=== PATIENT | female | born 1965 | race Asian ===

== ENCOUNTER → 2016-02-14 | Outpatient (CLI) | payer BC ==
--- NOTE | 2016-02-14 15:10 | MAMMOGRAPHY REPORT ---
BILATERAL DIGITAL DIAGNOSTIC MAMMOGRAM TOMOSYNTHESIS WITH CAD AND TARGETED RIGHT ULTRASOUND: 7 CLINICAL HISTORY: 50-year-old female for represents for follow-up in both breasts for clusters of mi crocalcifications and right breast asymmetry. She is 6 months status post benign right breast stere otactic biopsy of one of the clusters of microcalcifications. TECHNIQUE: Bilateral CC and MLO 2-D digital and tomosynthesis images; spot magnification CC and ML v iews of each breast were obtained. COMPARISON: Comparison is made to exams dated: 08/12/2015 mammogram, 08/09/2015 mammogram, 08/17/2015 st ereotactic biopsy, and 08/17/2015 mammogram - [facility]. BREAST COMPOSITION: The tissue of both breasts is heterogeneously dense, which may obscure small ma sses. FINDINGS: There is a dumbbell shaped metallic biopsy marker in the upper outer middle one third of the right breast, from previous benign stereotactic biopsy. On the spot magnification views of the right breast, a few remaining faint punctate grouped microcalcifications are seen superior and later al to the biopsy marker clip. On the standard right CC view, there is an 8 mm asymmetry in the ante rior breast, along the posterior nipple line on the CC view that appears very similar to an asymmetr y seen on the 08/09/2015 mammogram. Questionable persistent mass on the corresponding tomosynthesis images. Further evaluation with ultrasound was performed. No other obvious mass, architectural di stortion or new cluster of microcalcifications is identified within the right breast. The parenchymal pattern of the left breast is stable. There are grouped microcalcifications in the upper outer posterior left breast, near the fatglandular interface, that are unchanged comparing to spot magnification views performed 08/12/2015. Although these could also represent fibrocystic cj nges, longer stability is needed. No new suspicious mass, architectural distortion or cluster of ne w, suspicious microcalcifications is seen within the left breast. Real-time high-resolution sonographic evaluation was performed in the right breast 11:00 through 1:0 0, retroareolar, and 5:00 or 7:00 axes. No suspicious solid or cystic mass is identified. IMPRESSION: ACR-BI-RADS CATEGORY 3: PROBABLY BENIGN, TARGETED ULTRASOUND ACR-BI-RADS CATEGORY 3: ID OBABLY BENIGN 1. There are stable post biopsy changes in the upper outer quadrant of the right breast, and stable grouped punctate microcalcifications remaining within the right upper outer quadrant. An asymmetry along the posterior nipple line in the anterior right breast on the CC view has no suspicious sonog raphic correlate and it appears similar to the sixth 10/01/2015 mammogram. Although this most li nina represents normal overlapping fibrolinear tissue, follow-up right mammography and possible repe at ultrasound is recommended to ensure stability in 6 months. 2. There are stable grouped microcalcifications in the upper outer quadrant of the left breast, poly r the fatglandular interface. A another short interval follow-up exam including spot magnification views is recommended to ensure stability in 6 months. These results and recommendations were discussed with the patient at the time of the exam. She tent atively scheduled a follow-up appointment prior to leaving our department. Approximately 10% of breast cancers are not detected with mammography. A negative mammographic repor t should not delay biopsy if a clinically suggestive mass is present. Liza Olson M.D. ay/:02/14/2016 14:47:15 Regulatory Compliance Engineer: Marcella JAVED(Augusto)(Isiah), [facility] letter sent: Follow Up Recommended 3 BI-RADS Code: ACR-BI-RADS Category 3: Probably Benign Ultrasound BI-RADS: ACR-BI-RADS Category 3: P robably Benign
== END | disposition home or self-care (01) ==
LOC: C.MAMM 14:09
PROVIDERS: ATTEND Family Medicine
DX: R92.0 Mammographic microcalcification found on diagnostic imaging of breast (principal); N64.9 Disorder of breast, unspecified

== ENCOUNTER 2016-05-27 13:41 | Emergency (ER) | payer BC, OTHER ==
[~2016-05-27] VITALS: Ht 167.6 cm; Wt 82.0 kg
[2016-05-27 14:13] VITALS: O2SAT 99
[2016-05-27 14:17] VITALS: Ht 167.6 cm; Wt 82.0 kg
[2016-05-27 14:22] LABS: BASO % 0.2 %; BASO ABS # 0.01 K/uL (0-0.2); COMPLETE YES; EOS % 1.3 %; HEMATOCRIT 41.1 % (37-47); IG% 0.2 %; LYMPH % 27.1 %; LYMPH ABS # 1.28 K/uL (1.2-3.4); MEAN CELL VOLUME 88.6 fL (80-100); MEAN CORPUSCULAR HEMOGLOBIN 31.7 pg (25-34); MEAN CORPUSCULAR HGB CONC 35.8 g/dl (32-36); MEAN PLATELET VOLUME 10.3 fL (7.4-10.4); MONO % 6.1 %; NEUT % 65.1 %; PLATELET COUNT 206 K/uL (130-400); RED BLOOD COUNT 4.64 M/uL (4.2-5.4); WHITE BLOOD COUNT 4.72 K/uL (4.8-10.8)
--- NOTE | 2016-05-27 14:33 | DIAGNOSTIC IMAGING REPORT ---
SINGLE VIEW CHEST CLINICAL HISTORY: Dyspnea. FINDINGS: An AP, portable, upright chest radiograph is obtained. No prior studies are available for comparison at the time of dictation. The examination is degraded by portable technique, large body habitus, and patient rotation. The heart is top normal for projection. The mediastinal contour is within normal limits. There is minimal bibasilar atelectasis. The lungs and pleural spaces are otherwise clear. No pneumothorax is seen. The skeletal structures appear osteopenic. The bony thorax is grossly intact. IMPRESSION: No active disease in the chest. Electronically signed by: Porfirio Calderón M.D. 05/27/2016 2:31 PM Dictated Date/Time: 05/27/2016 2:30 PM
[2016-05-27 14:34] LABS: BUN/CREATININE RATIO 14.8 (10-20); CALCIUM 8.9 mg/dl (8.5-10.1); CREATININE 0.71 mg/dl (0.60-1.20); POTASSIUM 3.5 mmol/L (3.5-5.1)
[2016-05-27 14:39] LABS: ALB/GLOB RATIO 1.1 (0.9-2); CKMB/CK RATIO 1.7 (0-3.0)
[2016-05-27 16:01] LABS: URINE APPEARANCE CLEAR (CLEAR); URINE BILIRUBIN NEG (NEG); URINE COLOR YELLOW; URINE EPITHELIAL CELL AUTO >30 /lpf (0-5); URINE NITRITE NEG (NEG); URINE PH 5.5 (4.5-7.5); URINE SPECIFIC GRAVITY 1.005 (1.000-1.030); UROBILINOGEN NEG (NEG)
[2016-05-27 16:02] LABS: MANUAL MICROSCOPIC REQUIRED? NO; REVIEW REQ? YES
[2016-05-27 16:58] VITALS: BP 200/87; PULSE 87; TEMP 36.8; O2SAT 98
--- NOTE | 2016-05-27 17:42 | EMERGENCY ROOM VISIT NOTE ---
History Report prepared by Andrew: Ploi Pizano Under the Supervision of: Dr. Onesimo Guo M.D. First contact with patient: 14:01 Chief Complaint: SHORTNESS OF BREATH Stated Complaint: HYPERTENSION, FLUID IN LUNG, ENLARGED HEART History of Present Illness The patient is a 51 year old female who presents to the Emergency Room with complaints of intermittent shortness of breath for the past several days. The shortness of breath is worse with exertion. The patient was seen by [facility] earlier today because she has been hypertensive for the past several days. The patient had a Chest X-ray that showed fluid in her lungs. She is not treated for hypertension, but she does have a family history. The patient also has some neck pain/pressure, which is not exertional. The patient follows up with Dr. Young, [facility]. Patient denies LOC, headache, fevers, chills , diaphoresis, visual changes, chest pain, radiation to the jaw, nausea, vomiting, abdominal pain, back pain, melena, hematochezia, urinary symptoms, numbness, weakness, lymphadenopathy, rash, or other complaints. The patient's daughter acted as a airplane rental clerk at bedside. The patient's [place] language is Icelandic. Source of History: patient, family (daughter) Onset: several days ago Position: other (respiratory) Quality: other (short of breath) Timing: intermittent Modifying Factors (Worsening): exertion Associated Symptoms: + neck pain Review of Systems See HPI for pertinent positives and negatives. A total of ten systems were reviewed and were otherwise negative. Past Medical & Surgical Surgical Problems: (1) S/P section Family History Hypertension Social History Smoking Status: Never Smoker Housing Status: lives with family Current/Historical Medications No Active Prescriptions or Reported Meds Allergies Coded Allergies: No Known Allergies (Unverified , 05/27/16) Physical Exam Vital Signs Date Time Temp Pulse Resp B/P Pulse Ox O2 Delivery O2 Flow Rate FiO2 05/27/16 16:58 36.8 87 18 200/87 98 05/27/16 16:54 87 18 200/87 Room Air 05/27/16 15:21 74 16 145/98 98 Room Air 05/27/16 14:31 69 05/27/16 14:13 99 Room Air 05/27/16 13:44 36.8 76 20 194/99 98 Room Air Medical Decision & Procedures ER Provider Diagnostic Interpretation: X ray results as stated below per my interpretation and radiologist interpretation. SINGLE VIEW CHEST CLINICAL HISTORY: Dyspnea. FINDINGS: An AP, portable, upright chest radiograph is obtained. No prior studies are available for comparison at the time of dictation. The examination is degraded by portable technique, large body habitus, and patient rotation. The heart is top normal for projection. The mediastinal contour is within normal limits. There is minimal bibasilar atelectasis. The lungs and pleural spaces are otherwise clear. No pneumothorax is seen. The skeletal structures appear osteopenic. The bony thorax is grossly intact. IMPRESSION: No active disease in the chest. Electronically signed by: Porfirio Calderón M.D. 05/27/2016 2:31 PM Dictated Date/Time: 05/27/2016 2:30 PM Laboratory Results 05/27/16 14:00 Red Blood Count 4.64, Mean Corpuscular Volume 88.6, Mean Corpuscular Hemoglobin 31.7, Mean Corpuscular Hemoglobin Concent 35.8, Mean Platelet Volume 10.3, Neutrophils (%) (Auto) 65.1, Lymphocytes (%) (Auto) 27.1, Monocytes (%) (Auto) 6.1, Eosinophils (%) (Auto) 1.3, Basophils (%) (Auto) 0.2, Neutrophils # (Auto) 3.07, Lymphocytes # (Auto) 1.28, Monocytes # (Auto) 0.29, Eosinophils # (Auto) 0.06, Basophils # (Auto) 0.01 05/27/16 14:00 Test 05/27/16 14:00 05/27/16 14:16 05/27/16 15:10 White Blood Count 4.72 K/uL (4.8-10.8) Red Blood Count 4.64 M/uL (4.2-5.4) Hemoglobin 14.7 g/dL (12.0-16.0) Hematocrit 41.1 % (37-47) Mean Corpuscular Volume 88.6 fL (80-100) Mean Corpuscular Hemoglobin 31.7 pg (25-34) Mean Corpuscular Hemoglobin Concent 35.8 g/dl (32-36) Platelet Count 206 K/uL (130-400) Mean Platelet Volume 10.3 fL (7.4-10.4) Neutrophils (%) (Auto) 65.1 % Lymphocytes (%) (Auto) 27.1 % Monocytes (%) (Auto) 6.1 % Eosinophils (%) (Auto) 1.3 % Basophils (%) (Auto) 0.2 % Neutrophils # (Auto) 3.07 K/uL (1.4-6.5) Lymphocytes # (Auto) 1.28 K/uL (1.2-3.4) Monocytes # (Auto) 0.29 K/uL (0.11-0.59) Eosinophils # (Auto) 0.06 K/uL (0-0.5) Basophils # (Auto) 0.01 K/uL (0-0.2) RDW Standard Deviation 39.9 fL (36.4-46.3) RDW Coefficient of Variation 12.4 % (11.5-14.5) Immature Granulocyte % (Auto) 0.2 % Immature Granulocyte # (Auto) 0.01 K/uL (0.00-0.02) Anion Gap 10.0 mmol/L (3-11) Est Creatinine Clear Calc Drug Dose 98.9 ml/min Estimated GFR () 112.7 Estimated GFR (Non- 97.2 BUN/Creatinine Ratio 14.8 (10-20) Calcium Level 8.9 mg/dl (8.5-10.1) Total Bilirubin 1.8 mg/dl (0.2-1) Aspartate Amino Transf (AST/SGOT) 91 U/L (15-37) Alanine Aminotransferase (ALT/SGPT) 175 U/L (12-78) Alkaline Phosphatase 84 U/L (45-117) Total Creatine Kinase 78 U/L (26-192) Creatine Kinase MB 1.3 ng/ml (0.5-3.6) Creatine Kinase MB Ratio 1.7 (0-3.0) Total Protein 8.5 gm/dl (6.4-8.2) Albumin 4.5 gm/dl (3.4-5.0) Globulin 4.0 gm/dl (2.5-4.0) Albumin/Globulin Ratio 1.1 (0.9-2) Bedside Troponin I 0.000 ng/ml (0-0.045) VD-Jiq-U-Type Natriuretic Peptide 40 pg/ml (0-900) Urine Color YELLOW Urine Appearance CLEAR (CLEAR) Urine pH 5.5 (4.5-7.5) Urine Specific [place] 1.005 (1.000-1.030) Urine Protein NEG (NEG) Urine Glucose (UA) NEG (NEG) Urine Ketones NEG (NEG) Urine Occult Blood NEG (NEG) Urine Nitrite NEG (NEG) Urine Bilirubin NEG (NEG) Urine Urobilinogen NEG (NEG) Urine Leukocyte Esterase TRACE (NEG) Urine WBC (Auto) 5-10 /hpf (0-5) Urine RBC (Auto) 0-4 /hpf (0-4) Urine Hyaline Casts (Auto) 0 /lpf (0-5) Urine Epithelial Cells (Auto) >30 /lpf (0-5) Urine Bacteria (Auto) NEG (NEG) Laboratory results reviewed by me ECG Indication: SOB/dyspnea Rate (beats per minute): 72 Rhythm: normal sinus Findings: no acute ischemic change, no ectopy ED Course 1405: The patient was evaluated in room B3b. A complete history and physical exam was performed. 1547: Updated the patient and her daughter. 1645: I reevaluated the patient. Discussed results and discharge instructions: She verbalized understanding and agreement. The patient is ready for discharge. Medical Decision Prior records/ancillary studies reviewed regarding the history above. Triage Nursing notes reviewed and agree them. Additional history obtained from the daughter. The daughter is able to translate although the patient can understand [place] relatively well. The patient's history was concerning for hypertension. Differential diagnosis: Etiologies such as CHF, hypertensive emergency, benign hypertension, cardiovascular pathology, pheochromocytoma, electrolyte abnormality, renal disease, endorgan damage, as well as others were entertained. Physical examination: As above. ER treatment provided: Monitoring On reassessment the patient felt better. Diagnostic interpretation by me: The electrocardiogram was negative for pathologic change. The labs revealed an unremarkable CBC and chemistry panel. Troponin and BNP were negative. The patient had slight elevation of LFTs. I discussed the findings with the patient and her daughter. She has had elevated LFTs in the past. These are not immediately available. Imaging studies: Chest x-ray as above. No evidence of fluid overload. The patient was directed to the emergency department for concerns about possible CHF and hypertension. She is hypertensive but without intervention her blood pressure has diminished. She will likely need to be treated but will need close follow-up through the primary office. Given the circumstances this can happen tomorrow and she does not need to be admitted to the hospital. She has no stigmata of CHF or DVT. She is resting comfortably with stable vital signs. I did ask for her to refrain from any heavy exertion or physical activity until follow-up. There is no active breathing issues at this time and no hypoxia. This will need close follow. By the evaluation outlined above emergent etiologies such as hypertensive emergency, pheochromocytoma, endorgan damage, cardiac ischemia, aortic dissection, pulmonary embolism, pneumonia, pneumothorax, infections, gastrointestinal, as well as others were deemed relatively unlikely. The patient and daughter were informed about the findings as listed above. All questions were answered and they were pleased with the treatment. Return instructions were outlined and the patient was discharged in stable condition. Outpatient prescription management: none Referral: The patient was referred back to her primary care physician for follow-up tomorrow for a recheck of the current condition. The chart was completed utilizing [employer] Speech voice recognition software. Grammatical errors, random word insertions, pronoun errors, and incomplete sentences are an occasional consequence of this system due to software limitations, ambient noise, and hardware issues. Any formal questions or concerns about the content, text, or information contained within the body of this dictation should be directly addressed to the physician for clarification. Impression Primary Impression: HTN (hypertension) Scribe Attestation The scribe's documentation has been prepared under my direction and personally reviewed by me in its entirety. I confirm that the note above accurately reflects all work, treatment, procedures, and medical decision making performed by me. Departure Information Dispostion Home / Self-Care Prescriptions No Active Prescriptions or Reported Meds Referrals No Doctor, Assigned (PCP) Forms HOME CARE DOCUMENTATION FORM, IMPORTANT VISIT INFORMATION Patient Instructions My [facility]! Additional Instructions Rest and drink plenty of fluids as tolerated. Monitor blood pressure twice daily until follow-up with your primary physician. Return to the ER immediately for worsening or persistent blood pressures measured over 200 on the top and 110 on the bottom chest pain, abdominal pain, vomiting, fevers, chest pains, difficulty breathing, worsening of your condition , or as needed. Follow up with your primary physician tomorrow for a recheck of your current condition. Call the office around 8:00 in the morning and tell them you were in the Emergency Room and referred due to blood pressure problems. If you have difficulty getting into the primary doctor's office tomorrow call back to the emergency department at [phone] and asked the case assistant for assistance.
== END 2016-05-27 16:59 | disposition home or self-care (01) ==
LOC: C.EDB 13:45
DX: I10 Essential (primary) hypertension (principal)

== ENCOUNTER → 2016-06-05 | Outpatient (CLI) | payer BC ==
--- NOTE | 2016-06-05 11:38 | DIAGNOSTIC IMAGING REPORT ---
BILIARY ULTRASOUND CLINICAL HISTORY: Abnormal liver function tests COMPARISON STUDY: No previous studies for comparison. FINDINGS: The liver demonstrates increased echogenicity, nonspecific finding most often seen in hepatic steatosis. There is no ductal dilatation. The common bile duct measures 4 mm. The pancreas appears sonographically normal. No gallstones are identified. There is no right-sided hydronephrosis. IMPRESSION: 1. Increased hepatic echogenicity, likely secondary to hepatic steatosis 2. No evidence of ductal dilatation 3. Ultrasonographically normal gallbladder and pancreas Electronically signed by: Amarjit Michelle M.D. 06/05/2016 11:36 AM Dictated Date/Time: 06/05/2016 11:34 AM
== END | disposition home or self-care (01) ==
LOC: C.ULTRBC 11:12
PROVIDERS: ATTEND Family Medicine
DX: R79.89 Other specified abnormal findings of blood chemistry (principal); R93.2 Abnormal findings on diagnostic imaging of liver and biliary tract

== ENCOUNTER → 2016-08-21 | Outpatient (CLI) | payer BC ==
--- NOTE | 2016-08-21 15:39 | MAMMOGRAPHY REPORT ---
BILATERAL DIGITAL DIAGNOSTIC MAMMOGRAM TOMOSYNTHESIS WITH CAD: 08/21/2016 CLINICAL HISTORY: 51-year-old woman with a history of prior benign right breast stereotactic biopsy o f clustered microcalcifications in the upper outer quadrant. She presents for second follow-up of ot her similar appearing clusters of microcalcifications in each breast. TECHNIQUE: Bilateral breast tomosynthesis in addition to standard 2D mammography was performed. Spot magnification CC and ML views of each breast were also performed. Current study was also evaluated with a Computer Aided Detection (CAD) system. COMPARISON: Comparison is made to exams dated: 02/14/2016 ultrasound, 02/14/2016 mammogram, 08/17/2015 kim reotactic biopsy, 08/17/2015 mammogram, 08/12/2015 mammogram, and 08/09/2015 mammogram - [facility]. BREAST COMPOSITION: The tissue of both breasts is heterogeneously dense, which may obscure small mas ses. FINDINGS: There is a stable dumbbell shaped metallic biopsy marker in the upper outer middle one thir d of the right breast, denoting the site of the benign stereotactic biopsy. The breast parenchymal p attern is similar to prior mammograms. Spot magnification views redemonstrate a loose grouping of pu nctate microcalcifications in the right upper outer quadrant, slightly lateral to the biopsy marker c lip. There is also one cluster versus 2 clusters of faint punctate microcalcifications in the upper outer posterior left breast, near the fatglandular interface, measuring 12 mm, also unchanged based on prior spot magnification views dating back to 08/12/2015. Although the calcifications in each saima ast most likely represent benign calcifications or fibrocystic changes, another 12 month follow-up bi lateral diagnostic mammogram including spot magnification views is recommended to ensure longer stabi lity. No new suspicious mass, focal area of architectural distortion, developing asymmetry or new mi crocalcifications are seen bilaterally. IMPRESSION: ACR-BI-RADS CATEGORY 3: PROBABLY BENIGN Stable bilateral mammograms including post biopsy changes in the right breast, and stable clusters of microcalcifications bilaterally. Another 12 month follow-up bilateral diagnostic mammogram includin g spot magnification views is recommended to ensure longer stability of the microcalcifications. These results and recommendations were discussed with the patient and her daughter at the time of the exam. She tentatively scheduled a follow-up appointment prior to leaving our department. Approximately 10% of breast cancers are not detected with mammography. A negative mammographic report should not delay biopsy if a clinically suggestive mass is present. Liza Olson M.D. ay/:08/21/2016 14:33:40 Automation Operator: Aisha MONTERO)(Isiah), [facility] letter sent: Follow Up Recommended 3 BI-RADS Code: ACR-BI-RADS Category 3: Probably Benign
== END | disposition home or self-care (01) ==
LOC: C.MAMM 13:55
PROVIDERS: ATTEND Family Medicine
DX: R92.0 Mammographic microcalcification found on diagnostic imaging of breast (principal)